=== PATIENT | male | born 1955 | race Hispanic/Latino ===

== ENCOUNTER 2020-03-22 13:21 | Inpatient (IN) | payer OTHER, MEDICARE ==
[~2020-03-22] VITALS: Ht 170.2 cm; Wt 59.0 kg
[~2020-03-22 13:21] MED LIST: ASPIRIN; DIOVAN
[2020-03-22] MEDS ORDERED: METHYLPREDNISOLONE SOD SUCC 125 MG/2ML VIAL IV ONE (14:00)
[2020-03-22] MEDS ORDERED: ALBUTEROL/IPRATROPIUM 3 ML NEB NEB ONE (14:00)
[2020-03-22] MEDS ORDERED: NITROGLYCERIN 2% OINT 1 GM PKT TOP ONE (14:00)
[2020-03-22 14:08] LABS: BASOPHILS # (AUTO) 0.1 (0.0-0.1); BASOPHILS % 0.4 % (0.0-1.0); EOSINOPHILS # (AUTO) 0.1 (0.0-0.4); EOSINOPHILS % 0.9 % (0.0-6.0); HEMATOCRIT 54.5 % (38.2-49.6); HEMOGLOBIN 18.3 g/dL (14.0-18.0); LYMPHOCYTES # (AUTO) 1.8 (1.0-3.2); LYMPHOCYTES % 14.1 % (18.0-39.1); MEAN CORPUSCULAR HEMOGLOBIN 32.3 pg (28-32); MEAN CORPUSCULAR HGB CONC 33.6 g/dL (31-35); MEAN CORPUSCULAR VOLUME 96.1 fL (81-99); MONOCYTES # (AUTO) 0.9 (0.2-0.8); MONOCYTES % 7.3 % (4.4-11.3); NEUTROPHILS # (AUTO) 9.6 (2.1-6.9); NEUTROPHILS % 76.9 % (38.7-80.0); PLATELET COUNT 249 x10e3/uL (140-360); RED BLOOD COUNT 5.67 x10e6/uL (4.3-5.7); RED CELL DISTRIBUTION WIDTH 12.7 % (11.7-14.4)
[2020-03-22] MEDS ORDERED: CEFTRIAXONE SOD 1 GM/NS 50 ML 50 ML IV ONE (14:15)
[2020-03-22 14:22] LABS: INR 1.02; PROTHROMBIN TIME 13.9 seconds (11.9-14.5)
[2020-03-22 14:23] LABS: PARTIAL THROMBOPLASTIN TIME 28.5 seconds (23.8-35.5)
[2020-03-22 14:31] LABS: ALANINE AMINOTRANSFERASE 37 IU/L (0-55); ALBUMIN 4.4 g/dL (3.5-5.0); ALBUMIN/GLOBULIN RATIO 1.2 (0.8-2.0); ALKALINE PHOSPHATASE 113 IU/L (40-150); ANION GAP 14.6 mmol/L (8-16); BLOOD UREA NITROGEN 18 mg/dL (7-26); BUN/CREATININE RATIO 16 (6-25); CALCIUM 9.6 mg/dL (8.4-10.2); CARBON DIOXIDE 29 mmol/L (22-29); CHLORIDE 96 mmol/L (98-107); CREATINE KINASE 251 IU/L (30-200); CREATININE, SERUM 1.16 mg/dL (0.72-1.25); EST GLOMERULAR FILTRATION RATE > 60 ML/MIN (60-); GLUCOSE 136 mg/dL (74-118); MAGNESIUM 2.2 MG/DL (1.3-2.1); POTASSIUM 3.6 mmol/L (3.5-5.1); SODIUM 136 mmol/L (136-145)
[2020-03-22] MEDS ORDERED: AZITHROMYCIN 500MG/NS 250 ML 250 ML IV ONE (15:00)
[2020-03-22] MEDS ORDERED: ALBUTEROL SULF 0.083% NEB SOLN 3 ML NEB NEB PRN (15:30)
[2020-03-22 16:00] LABS: CLARITY,URINE SL CLOUDY (CLEAR); COLOR,URINE YELLOW (YELLOW); KETONES,URINE NEGATIVE (NEGATIVE); LEUKOCYTE ESTERASE ,URINE NEGATIVE (NEGATIVE); NITRITE,URINE NEGATIVE (NEGATIVE); PROTEIN,URINE DIPSTICK 2+ (NEGATIVE); URINE UROBILINOGEN 1 mg/dL (0.2 - 1)
[2020-03-22 16:13] LABS: BACTERIA,URINE MODERATE /HPF; EPITHELIAL CELLS,URINE FEW /LPF
[2020-03-22] MEDS: NITROGLYCERIN 2% OINT 1 GM PKT TOP SCH (18:00)
[2020-03-22 20:00] VITALS: BP 150/92
[2020-03-22] MEDS: ALBUTEROL/IPRATROPIUM 3 ML NEB NEB SCH ×2 (20:08→23:20)
[2020-03-22 21:15] VITALS: BP 150/92
[2020-03-22] MEDS ORDERED: CRESTOR10 MG PO (21:43)
[2020-03-22] MEDS ORDERED: METOPROLOL TAR100 MG PO (21:43)
[2020-03-22] MEDS ORDERED: ANORO ELLIPTA1 EACH INH (21:43)
[2020-03-22] MEDS ORDERED: PROVENTIL HFA6.7 GM INH (21:43)
[2020-03-22] MEDS ORDERED: SYMBICORT 16010.2 GM INH (21:43)
[2020-03-22] MEDS ORDERED: LOSARTAN POTASS25 MG PO (21:43)
[2020-03-22] MEDS ORDERED: TEMAZEPAM 7.5 MG CAP PO PRN (22:30)
[2020-03-22] MEDS ORDERED: POLYETHYLENE GLYCOL 3350 17 GM PACK PO PRN (22:30)
[2020-03-22] MEDS ORDERED: ONDANSETRON HCL INJ 2MG/ML 2ML 2 MG/ML VIAL IV PRN (22:30)
[2020-03-22] MEDS ORDERED: ACETAMINOPHEN 325 MG TAB PO PRN (22:30)
[2020-03-22] MEDS ORDERED: HYDRALAZINE HCL 20 MG/ML VIAL IV PRN (22:30)
[2020-03-22] MEDS: METHYLPREDNISOLONE SOD SUCC 125 MG/2ML VIAL IV SCH (22:45)
[2020-03-22] MEDS ORDERED: FUROSEMIDE INJ 10 MG/ML 4 ML VIAL IV ONE (23:15)
[2020-03-22] MEDS ORDERED: POTASSIUM CHLORIDE 10MEQ EA PO ONE (23:15)
[2020-03-22 23:17] LABS: CREATINE KINASE MB 7.7 ng/mL (0-5.0)
[2020-03-23] VITALS: BP 147/86
[2020-03-23] MEDS: NITROGLYCERIN 2% OINT 1 GM PKT TOP SCH ×4 (00:15→17:12)
[2020-03-23] MEDS: ALBUTEROL/IPRATROPIUM 3 ML NEB NEB SCH ×6 (03:00→22:30)
[2020-03-23 04:00] VITALS: BP_SYST 107; BP_SYST 114; BP_DIAS 76; BP_DIAS 79
[2020-03-23] MEDS: METHYLPREDNISOLONE SOD SUCC 125 MG/2ML VIAL IV SCH (06:45)
[2020-03-23 08:12] VITALS: BP 125/82
[2020-03-23 08:16] LABS: BASOPHILS % 0.1 % (0.0-1.0); HEMATOCRIT 45.6 % (38.2-49.6); HEMOGLOBIN 15.3 g/dL (14.0-18.0); LYMPHOCYTES # (AUTO) 0.9 (1.0-3.2); LYMPHOCYTES % 10.9 % (18.0-39.1); MEAN CORPUSCULAR HEMOGLOBIN 31.9 pg (28-32); MEAN CORPUSCULAR HGB CONC 33.6 g/dL (31-35); MEAN CORPUSCULAR VOLUME 95.2 fL (81-99); MONOCYTES # (AUTO) 0.2 (0.2-0.8); MONOCYTES % 1.8 % (4.4-11.3); NEUTROPHILS # (AUTO) 7.1 (2.1-6.9); NEUTROPHILS % 86.8 % (38.7-80.0); PLATELET COUNT 207 x10e3/uL (140-360); RED BLOOD COUNT 4.79 x10e6/uL (4.3-5.7); RED CELL DISTRIBUTION WIDTH 12.9 % (11.7-14.4)
[2020-03-23 08:27] VITALS: BP 125/82
[2020-03-23 08:37] LABS: ALBUMIN 3.7 g/dL (3.5-5.0); ALBUMIN/GLOBULIN RATIO 1.2 (0.8-2.0); ANION GAP 18.7 mmol/L (8-16); CALCIUM 8.8 mg/dL (8.4-10.2); CHOL/HDL RATIO 2.7 (3.9-4.7); CREATININE, SERUM 1.23 mg/dL (0.72-1.25); MAGNESIUM 1.9 MG/DL (1.3-2.1); PHOSPHORUS 3.8 MG/DL (2.3-4.7); POTASSIUM 3.7 mmol/L (3.5-5.1)
[2020-03-23] MEDS: FAMOTIDINE 20 MG/2 ML VIAL IV SCH ×2 (08:43→17:12)
[2020-03-23] MEDS: DOCUSATE SODIUM 100 MG CAP PO SCH ×2 (08:43→17:11)
[2020-03-23 08:46] LABS: CREATINE KINASE MB 5.8 ng/mL (0-5.0)
[2020-03-23] MEDS ORDERED: SYMBICORT 16010.2 GM INH (08:54)
[2020-03-23 08:59] LABS: THYROID STIMULATING HORMONE 0.194 uIU/mL (0.350-4.940)
[2020-03-23] MEDS ORDERED: METHYLPREDNISOLONE SOD SUCC 125 MG/2ML VIAL IV SCH (10:45)
[2020-03-23] MEDS ORDERED: FUROSEMIDE INJ 10 MG/ML 2 ML VIAL IV ONE (11:00)
[2020-03-23] MEDS: AZITHROMYCIN 500MG/NS 250 ML 250 ML IV SCH (11:30)
[2020-03-23] MEDS ORDERED: POTASSIUM CHLORIDE 10MEQ EA PO ONE (11:30)
[2020-03-23 12:07] VITALS: BP 112/62
[2020-03-23] MEDS ORDERED: SODIUM CHLORIDE 0.9% 500ML 500 ML ONE (13:00)
[2020-03-23] MEDS: CEFTRIAXONE SOD 1 GM/NS 50 ML 50 ML IV SCH (13:20)
[2020-03-23 16:31] VITALS: BP 114/67
[2020-03-23] MEDS: METOPROLOL TARTRATE 50 MG TAB PO SCH (17:11)
[2020-03-23 18:25] LABS: ABG PCO2 47 mmHg (35-45); ABG PH 7.41 (7.35-7.45)
[2020-03-23 18:26] LABS: ABG HCO3 30 mmol/L (22-26); ABG PO2 71 mmHg (80-105); ABG TCO2 31
[2020-03-24] VITALS: BP 146/84
[2020-03-24] MEDS: NITROGLYCERIN 2% OINT 1 GM PKT TOP SCH ×3 (00:22→12:49)
[2020-03-24] MEDS: ALBUTEROL/IPRATROPIUM 3 ML NEB NEB SCH ×4 (02:00→14:50)
[2020-03-24 04:00] VITALS: BP 125/71
[2020-03-24 06:55] LABS: BASOPHILS % 0.1 % (0.0-1.0); HEMATOCRIT 43.6 % (38.2-49.6); HEMOGLOBIN 14.9 g/dL (14.0-18.0); LYMPHOCYTES # (AUTO) 1.2 (1.0-3.2); LYMPHOCYTES % 6.8 % (18.0-39.1); MEAN CORPUSCULAR HEMOGLOBIN 32.5 pg (28-32); MEAN CORPUSCULAR HGB CONC 34.2 g/dL (31-35); MEAN CORPUSCULAR VOLUME 95.2 fL (81-99); MONOCYTES # (AUTO) 1.2 (0.2-0.8); MONOCYTES % 6.8 % (4.4-11.3); NEUTROPHILS # (AUTO) 14.7 (2.1-6.9); NEUTROPHILS % 85.5 % (38.7-80.0); PLATELET COUNT 214 x10e3/uL (140-360); RED BLOOD COUNT 4.58 x10e6/uL (4.3-5.7); RED CELL DISTRIBUTION WIDTH 13.1 % (11.7-14.4)
[2020-03-24 07:18] LABS: ANION GAP 11.9 mmol/L (8-16); BLOOD UREA NITROGEN 29 mg/dL (7-26); BUN/CREATININE RATIO 26 (6-25); CALCIUM 8.7 mg/dL (8.4-10.2); CARBON DIOXIDE 31 mmol/L (22-29); CHLORIDE 98 mmol/L (98-107); CREATININE, SERUM 1.12 mg/dL (0.72-1.25); EST GLOMERULAR FILTRATION RATE > 60 ML/MIN (60-); GLUCOSE 97 mg/dL (74-118); POTASSIUM 3.9 mmol/L (3.5-5.1); SODIUM 137 mmol/L (136-145)
[2020-03-24 07:42] VITALS: BP 128/82
[2020-03-24] MEDS: FAMOTIDINE 20 MG/2 ML VIAL IV SCH (08:25)
[2020-03-24] MEDS: DOCUSATE SODIUM 100 MG CAP PO SCH (08:25)
[2020-03-24] MEDS: METOPROLOL TARTRATE 50 MG TAB PO SCH ×2 (08:25→16:35)
[2020-03-24 08:38] VITALS: BP 128/82
[2020-03-24] MEDS ORDERED: SIMVASTATIN 40 MG TAB PO SCH (09:00)
[2020-03-24] MEDS: CEFTRIAXONE SOD 1 GM/NS 50 ML 50 ML IV SCH (09:10)
[2020-03-24] MEDS ORDERED: ZITHROMAX500 MG PO (10:44)
[2020-03-24] MEDS ORDERED: SYMBICORT 16010.2 GM INH (10:44)
[2020-03-24] MEDS ORDERED: PREDNISONE10 MG PO (10:44)
[2020-03-24] MEDS ORDERED: PROVENTIL HFA6.7 GM INH (10:44)
[2020-03-24] MEDS ORDERED: CEFUROXIME250 MG PO (10:44)
[2020-03-24] MEDS: AZITHROMYCIN 500MG/NS 250 ML 250 ML IV SCH (11:00)
[2020-03-24 12:00] VITALS: BP 141/74
[2020-03-24 16:00] VITALS: BP 171/98
== END 2020-03-24 17:15 | disposition home or self-care (01) | DRG 190 ==
LOC: ER 13:29 → ERHOLD 15:35 → MED/SURG3 18:51
PROVIDERS: ADMIT Internal Medicine; ATTEND Internal Medicine
DX: J43.9 Emphysema, unspecified (principal); J96.22 Acute and chronic respiratory failure with hypercapnia; J96.21 Acute and chronic respiratory failure with hypoxia; Z95.1 Presence of aortocoronary bypass graft; I16.0 Hypertensive urgency; R73.9 Hyperglycemia, unspecified; T38.0X5A Adverse effect of glucocorticoids and synthetic analogues, initial encounter; I25.10 Atherosclerotic heart disease of native coronary artery without angina pectoris; Z99.81 Dependence on supplemental oxygen; Z87.891 Personal history of nicotine dependence; Z20.828 Contact with and (suspected) exposure to other viral communicable diseases; E83.41 Hypermagnesemia; I25.2 Old myocardial infarction
CPT/HCPCS: 36415; 36600; 71045; 71250; 80048; 80053; 80061; 81001; 82550; 82553; 82805; 83036; 83735; 83880; 84100; 84443; 84484; 85025; 85610; 85730; 87040; 87086; 93005; 93306; 94640; 99284; J0360; J0456; J0696; J1940; J2930; J7040; U0002

== ENCOUNTER 2020-05-08 12:17 | Inpatient (IN) | payer OTHER, MEDICARE ==
[~2020-05-08] VITALS: Ht 167.6 cm; Wt 56.7 kg
[~2020-05-08 12:17] MED LIST changes: +ANORO ELLIPTA1 EACH INH; -ASPIRIN; +ASPIRIN PO; +CEFUROXIME250 MG PO; +CRESTOR10 MG PO; +LOSARTAN POTASS25 MG PO; +METOPROLOL TAR100 MG PO; +PREDNISONE10 MG PO; +PROVENTIL HFA6.7 GM INH; +SYMBICORT 16010.2 GM INH; +ZITHROMAX500 MG PO
[2020-05-08] MEDS ORDERED: METHYLPREDNISOLONE SOD SUCC 125 MG/2ML VIAL IV STA (12:38)
[2020-05-08] MEDS ORDERED: ALBUTEROL/IPRATROPIUM 3 ML NEB NEB ONE ×2 (12:45→14:00)
[2020-05-08 13:01] LABS: BASOPHILS # (AUTO) 0.1 (0.0-0.1); BASOPHILS % 0.5 % (0.0-1.0); EOSINOPHILS # (AUTO) 0.3 (0.0-0.4); EOSINOPHILS % 2.3 % (0.0-6.0); HEMATOCRIT 50.6 % (38.2-49.6); HEMOGLOBIN 16.4 g/dL (14.0-18.0); LYMPHOCYTES # (AUTO) 1.4 (1.0-3.2); MEAN CORPUSCULAR HEMOGLOBIN 31.5 pg (28-32); MEAN CORPUSCULAR HGB CONC 32.4 g/dL (31-35); MEAN CORPUSCULAR VOLUME 97.1 fL (81-99); MONOCYTES # (AUTO) 0.8 (0.2-0.8); MONOCYTES % 6.5 % (4.4-11.3); NEUTROPHILS # (AUTO) 9.1 (2.1-6.9); NEUTROPHILS % 78.2 % (38.7-80.0); PLATELET COUNT 246 x10e3/uL (140-360); RED BLOOD COUNT 5.21 x10e6/uL (4.3-5.7); RED CELL DISTRIBUTION WIDTH 12.9 % (11.7-14.4)
[2020-05-08 13:14] LABS: INR 0.94; PARTIAL THROMBOPLASTIN TIME 27.5 seconds (23.8-35.5); PROTHROMBIN TIME 13.1 seconds (11.9-14.5)
[2020-05-08 13:27] LABS: ALANINE AMINOTRANSFERASE 15 IU/L (0-55); ALBUMIN 4.3 g/dL (3.5-5.0); ALBUMIN/GLOBULIN RATIO 1.1 (0.8-2.0); ALKALINE PHOSPHATASE 125 IU/L (40-150); ANION GAP 14.3 mmol/L (8-16); BLOOD UREA NITROGEN 15 mg/dL (7-26); BUN/CREATININE RATIO 15 (6-25); CALCIUM 9.1 mg/dL (8.4-10.2); CARBON DIOXIDE 32 mmol/L (22-29); CHLORIDE 96 mmol/L (98-107); CREATINE KINASE 80 IU/L (30-200); EST GLOMERULAR FILTRATION RATE > 60 ML/MIN (60-); GLUCOSE 117 mg/dL (74-118); MAGNESIUM 1.8 MG/DL (1.3-2.1); POTASSIUM 4.3 mmol/L (3.5-5.1); SODIUM 138 mmol/L (136-145)
[2020-05-08] MEDS: AZITHROMYCIN 500MG/NS 250 ML 250 ML IV SCH (13:28)
[2020-05-08] MEDS: CEFTRIAXONE SOD 1 GM/NS 50 ML 50 ML IV SCH (13:28)
[2020-05-08] MEDS ORDERED: NITROGLYCERIN 2% OINT 1 GM PKT TOP ONE (15:00)
[2020-05-08] MEDS ORDERED: ONDANSETRON HCL INJ 2MG/ML 2ML 2 MG/ML VIAL IV PRN (15:45)
[2020-05-08] MEDS ORDERED: ENALAPRILAT IV INJ 1.25 MG/ML VIAL IV STA (16:21)
[2020-05-08] MEDS ORDERED: ENALAPRILAT IV INJ 1.25 MG/ML VIAL IV ONE (16:30)
[2020-05-08 17:15] VITALS: BP 144/93
[2020-05-08 17:22] VITALS: BP 144/93
[2020-05-08 17:23] VITALS: BP 144/93
[2020-05-08] MEDS: NITROGLYCERIN 2% OINT 1 GM PKT TOP SCH (17:35)
[2020-05-08] MEDS ORDERED: ALBUTEROL/IPRATROPIUM 3 ML NEB NEB SCH (19:00)
[2020-05-08 19:42] VITALS: BP 128/83
[2020-05-08] MEDS ORDERED: IOPAMIDOL 370 MG/ML 200 ML INFUS..BTL INJ ONE (20:17)
[2020-05-08] MEDS ORDERED: SODIUM CHLORIDE 0.9% 50ML 50 ML ONE (20:17)
[2020-05-08 21:00] VITALS: BP 128/83
[2020-05-08] MEDS ORDERED: ASPIRIN 81 MG PO SCH (21:00)
[2020-05-08] MEDS: ASPIRIN 81 MG CHEW TAB PO SCH (21:26)
[2020-05-08] MEDS: SIMVASTATIN 20 MG TAB PO SCH (21:27)
[2020-05-08] MEDS ORDERED: METHYLPREDNISOLONE SOD SUCC 125 MG/2ML VIAL IV SCH (22:00)
[2020-05-08] MEDS: HEPARIN SOD (PORCINE) 5,000 UNIT/ML VIAL SC SCH (22:44)
[2020-05-08 22:48] LABS: CREATINE KINASE 70 IU/L (30-200)
[2020-05-09] VITALS (8 sets, daily range): BP systolic 115–156; BP diastolic 76–94
[2020-05-09] MEDS: NITROGLYCERIN 2% OINT 1 GM PKT TOP SCH ×4 (01:00→16:51)
[2020-05-09 05:39] LABS: BASOPHILS % 0.1 % (0.0-1.0); HEMATOCRIT 38.9 % (38.2-49.6); LYMPHOCYTES # (AUTO) 0.9 (1.0-3.2); LYMPHOCYTES % 11.7 % (18.0-39.1); MEAN CORPUSCULAR HEMOGLOBIN 31.9 pg (28-32); MEAN CORPUSCULAR HGB CONC 33.4 g/dL (31-35); MEAN CORPUSCULAR VOLUME 95.6 fL (81-99); MONOCYTES # (AUTO) 0.4 (0.2-0.8); MONOCYTES % 5.6 % (4.4-11.3); NEUTROPHILS # (AUTO) 6.3 (2.1-6.9); NEUTROPHILS % 82.1 % (38.7-80.0); PLATELET COUNT 208 x10e3/uL (140-360); RED BLOOD COUNT 4.07 x10e6/uL (4.3-5.7); RED CELL DISTRIBUTION WIDTH 12.9 % (11.7-14.4)
[2020-05-09 06:23] LABS: ALANINE AMINOTRANSFERASE 12 IU/L (0-55); ALBUMIN 3.3 g/dL (3.5-5.0); ALBUMIN/GLOBULIN RATIO 1.1 (0.8-2.0); ALKALINE PHOSPHATASE 89 IU/L (40-150); ANION GAP 13.2 mmol/L (8-16); BLOOD UREA NITROGEN 23 mg/dL (7-26); BUN/CREATININE RATIO 27 (6-25); CALCIUM 8.5 mg/dL (8.4-10.2); CARBON DIOXIDE 31 mmol/L (22-29); CHLORIDE 99 mmol/L (98-107); CHOL/HDL RATIO 2.7 (3.9-4.7); CHOLESTEROL 126 MD/DL (0-199); CREATININE, SERUM 0.86 mg/dL (0.72-1.25); EST GLOMERULAR FILTRATION RATE > 60 ML/MIN (60-); GLUCOSE 110 mg/dL (74-118); HDL CHOLESTEROL 47 MG/DL (40-60); LDL CHOLESTEROL 70 MG/DL (60-130); POTASSIUM 4.2 mmol/L (3.5-5.1); SODIUM 139 mmol/L (136-145); TRIGLYCERIDES 44 MG/DL (0-149)
[2020-05-09 06:47] LABS: CREATINE KINASE MB 2.3 ng/mL (0-5.0)
[2020-05-09] MEDS ORDERED: METHYLPREDNISOLONE SOD SUCC 125 MG/2ML VIAL IV SCH (09:00)
[2020-05-09] MEDS ORDERED: SIMVASTATIN 40 MG TAB PO SCH (09:00)
[2020-05-09] MEDS: METHYLPREDNISOLONE SOD SUCC 40 MG/ML VIAL 1ML IV SCH ×2 (09:10→16:51)
[2020-05-09] MEDS: METOPROLOL TARTRATE 50 MG TAB PO SCH ×2 (09:10→16:51)
[2020-05-09] MEDS: HEPARIN SOD (PORCINE) 5,000 UNIT/ML VIAL SC SCH (09:11)
[2020-05-09] MEDS ORDERED: SODIUM CHLORIDE 0.9% 250ML 250 ML ONE (11:00)
[2020-05-09] MEDS: CEFTRIAXONE SOD 1 GM/NS 50 ML 50 ML IV SCH (11:24)
[2020-05-09 12:21] LABS: CREATINE KINASE MB 2.3 ng/mL (0-5.0)
[2020-05-09] MEDS: AZITHROMYCIN 500MG/NS 250 ML 250 ML IV SCH (12:30)
[2020-05-09] MEDS: ASPIRIN 81 MG CHEW TAB PO SCH (21:34)
[2020-05-10] VITALS (7 sets, daily range): BP systolic 149–171; BP diastolic 91–108
[2020-05-10] MEDS: HEPARIN SOD (PORCINE) 5,000 UNIT/ML VIAL SC SCH ×3 (00:32→20:55)
[2020-05-10] MEDS: HYDRALAZINE HCL 20 MG/ML VIAL IV PRN ×3 (02:23→21:05)
[2020-05-10 06:42] LABS: BASOPHILS % 0.1 % (0.0-1.0); HEMATOCRIT 47.7 % (38.2-49.6); HEMOGLOBIN 15.6 g/dL (14.0-18.0); LYMPHOCYTES # (AUTO) 1.3 (1.0-3.2); LYMPHOCYTES % 8.6 % (18.0-39.1); MEAN CORPUSCULAR HGB CONC 32.7 g/dL (31-35); MEAN CORPUSCULAR VOLUME 97.7 fL (81-99); MONOCYTES % 6.6 % (4.4-11.3); NEUTROPHILS # (AUTO) 13.1 (2.1-6.9); NEUTROPHILS % 84.2 % (38.7-80.0); PLATELET COUNT 267 x10e3/uL (140-360); RED BLOOD COUNT 4.88 x10e6/uL (4.3-5.7)
[2020-05-10 07:19] LABS: ANION GAP 15.5 mmol/L (8-16); BLOOD UREA NITROGEN 24 mg/dL (7-26); BUN/CREATININE RATIO 27 (6-25); CALCIUM 9.5 mg/dL (8.4-10.2); CARBON DIOXIDE 33 mmol/L (22-29); CHLORIDE 97 mmol/L (98-107); CREATININE, SERUM 0.88 mg/dL (0.72-1.25); EST GLOMERULAR FILTRATION RATE > 60 ML/MIN (60-); GLUCOSE 108 mg/dL (74-118); POTASSIUM 4.5 mmol/L (3.5-5.1); SODIUM 141 mmol/L (136-145)
[2020-05-10] MEDS ORDERED: LOSARTAN POTASS25 MG PO (08:12)
[2020-05-10] MEDS: METHYLPREDNISOLONE SOD SUCC 40 MG/ML VIAL 1ML IV SCH ×2 (09:00→16:36)
[2020-05-10] MEDS: METOPROLOL TARTRATE 50 MG TAB PO SCH ×2 (09:00→16:37)
[2020-05-10] MEDS: NITROGLYCERIN 2% OINT 1 GM PKT TOP SCH ×3 (12:00→17:49)
[2020-05-10] MEDS ORDERED: POLYETHYLENE GLYCOL 3350 17 GM PACK PO PRN (12:00)
[2020-05-10] MEDS ORDERED: ONDANSETRON HCL INJ 2MG/ML 2ML 2 MG/ML VIAL IV PRN (12:00)
[2020-05-10] MEDS ORDERED: ACETAMINOPHEN 325 MG TAB PO PRN (12:00)
[2020-05-10] MEDS: CEFTRIAXONE SOD 1 GM/NS 50 ML 50 ML IV SCH (12:45)
[2020-05-10] MEDS ORDERED: FAMOTIDINE 20 MG TAB PO ONE (13:15)
[2020-05-10] MEDS: AZITHROMYCIN 500MG/NS 250 ML 250 ML IV SCH (13:30)
[2020-05-10] MEDS: FAMOTIDINE 20 MG TAB PO SCH (16:30)
[2020-05-10] MEDS: DOCUSATE SODIUM 100 MG CAP PO SCH (16:37)
[2020-05-10] MEDS: SIMVASTATIN 20 MG TAB PO SCH (20:54)
[2020-05-10] MEDS: ASPIRIN 81 MG CHEW TAB PO SCH (20:54)
[2020-05-10] MEDS ORDERED: TEMAZEPAM 15 MG CAP PO PRN (21:00)
[2020-05-11] VITALS: BP 166/99
[2020-05-11] MEDS: NITROGLYCERIN 2% OINT 1 GM PKT TOP SCH ×2 (00:34→05:48)
[2020-05-11] MEDS: HYDRALAZINE HCL 20 MG/ML VIAL IV PRN (01:15)
[2020-05-11 04:00] VITALS: BP 127/78
[2020-05-11] MEDS ORDERED: ZITHROMAX500 MG PO (05:50)
[2020-05-11] MEDS ORDERED: PREDNISONE10 MG PO (05:50)
[2020-05-11] MEDS ORDERED: PROVENTIL HFA6.7 GM INH (05:50)
[2020-05-11] MEDS ORDERED: CEFUROXIME250 MG PO (05:50)
[2020-05-11] MEDS: FAMOTIDINE 20 MG TAB PO SCH (07:30)
[2020-05-11] MEDS: METHYLPREDNISOLONE SOD SUCC 40 MG/ML VIAL 1ML IV SCH (08:32)
[2020-05-11] MEDS: METOPROLOL TARTRATE 50 MG TAB PO SCH (08:32)
[2020-05-11] MEDS: DOCUSATE SODIUM 100 MG CAP PO SCH (08:32)
[2020-05-11] MEDS: HEPARIN SOD (PORCINE) 5,000 UNIT/ML VIAL SC SCH (09:00)
[2020-05-11 09:10] VITALS: BP 152/88
== END 2020-05-11 10:38 | disposition home or self-care (01) | DRG 193 ==
LOC: ER 13:19 → ERHOLD 15:47 → MED/SURG2 16:33
PROVIDERS: ADMIT Internal Medicine; ATTEND Internal Medicine
DX: J18.9 Pneumonia, unspecified organism (principal); J96.21 Acute and chronic respiratory failure with hypoxia; J43.9 Emphysema, unspecified; I10 Essential (primary) hypertension; E78.5 Hyperlipidemia, unspecified; F17.200 Nicotine dependence, unspecified, uncomplicated; Z99.81 Dependence on supplemental oxygen; I25.10 Atherosclerotic heart disease of native coronary artery without angina pectoris; Z95.1 Presence of aortocoronary bypass graft; I71.4 Abdominal aortic aneurysm, without rupture; Z20.822 Contact with and (suspected) exposure to COVID-19
CPT/HCPCS: 36415; 71045; 71260; 80048; 80053; 80061; 82550; 82553; 83735; 83880; 84100; 84484; 85025; 85610; 85730; 87040; 87070; 87116; 87205; 87206; 93005; 94640; 99251; 99284; J0360; J0456; J0696; J1644; J2920; J2930; J7050; Q9967; U0002